=== PATIENT | female | born 1950 | race Caucasian/White ===

== ENCOUNTER 2022-07-31 18:43 | Emergency (ER) | payer OTHER ==
[~2022-07-31] VITALS: Wt 75.8 kg
[~2022-07-31 18:43] MED LIST: ALTACE5 MG; ATIVAN2 MG; CELEBREX100 MG PO; CRESTOR5 MG; ENALAPRIL MALEA20 MG PO; NITRO DUR; SKELAXIN800 MG PO; ZIAC 2.5-6.251 EACH PO
== END 2022-07-31 20:48 | disposition home or self-care (01) ==
LOC: ER 18:43
DX: B00.1 Herpesviral vesicular dermatitis (principal)

== ENCOUNTER 2022-09-09 14:07 | Emergency (ER) | payer OTHER ==
[~2022-09-09] VITALS: Ht 167.6 cm; Wt 63.5 kg
[2022-09-09] MEDS ORDERED: ENALAPRIL MALEA10 MG PO (14:29)
[2022-09-09] MEDS ORDERED: LORAZEPAM1 MG PO (14:29)
[2022-09-09] MEDS ORDERED: ZIAC 2.5-6.251 EACH PO (14:29)
[2022-09-09] MEDS ORDERED: CHILDREN'S ASPI81 MG PO (14:30)
== END 2022-09-09 17:00 | disposition home or self-care (01) ==
LOC: ER 14:07
DX: R42 Dizziness and giddiness (principal)